=== PATIENT | female | born 1995 | race Two or more races ===

== ENCOUNTER 2017-06-19 02:11 | Emergency (ER) | payer OTHER ==
[2017-06-19 02:36] VITALS: O2SAT 96
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
[2017-06-19 04:25] VITALS: BP 110/61; PULSE 86; RESP 16; TEMP 97.9
== END 2017-06-19 04:25 | disposition home or self-care (01) ==
DX: S52.502A Unspecified fracture of the lower end of left radius, initial encounter for closed fracture (principal); S39.92XA Unspecified injury of lower back, initial encounter; V49.50XA Passenger injured in collision with unspecified motor vehicles in traffic accident, initial encounter; Y92.410 Unspecified street and highway as the place of occurrence of the external cause